=== PATIENT | male | born 1995 | race Caucasian/White ===

== ENCOUNTER 2017-02-23 08:12 | Emergency (ER) | payer BC ==
[2017-02-23 08:34] VITALS: BP 121/77
--- NOTE | 2017-02-23 08:49 | UC ---
Cardiac HPI - HPI Summary HPI Summary: 21 year old male with chest pain. Left chest pain for 2-3 days; pt did have cough 3 days before CP started. Pt had CP one month ago with URI; resolved. Pain is becoming more constant. Increased pain with activity. SOB off/on. Hx of pericarditis at age 17yrs and he is concerned about this recurring. This feels similar Pain 3/10 at this time and 8/10 last night. Went to [facility] in [place] 4 years ago and not since. [ End ] - History of Current Complaint Chief Complaint: UCChestPain Stated Complaint: CHEST PAIN Time Seen by Provider: 02/23/17 08:15 Hx Obtained From: Patient Onset/Duration: Gradual Onset Timing: Constant Initial Severity: Mild Current Severity: Moderate Chest Pain Location: Diffuse Related History: Similar Episode/Dx as - 4 years ago - Allergy/Home Medications Allergies/Adverse Reactions: Allergies Allergy/AdvReac Type Severity Reaction Status Date / Time No Known Allergies Allergy Verified 02/23/17 08:34 Home Medications: Home Medications Ranitidine HCl [Zantac] 150 mg PO ONCE PRN 02/23/17 [History Confirmed 02/23/17] PMH/Surg Hx/FS Hx/Imm Hx Previously Healthy: Yes Other Cardiovascular History: pericarditis age 17 Other History Of: Negative For: HIV, Hepatitis B, Hepatitis C, Anticoagulant Therapy - Surgical History Surgical History: Yes Surgery Procedure, Year, and Place: plastic facial - Family History Known Family History: Positive: Hypertension Negative: Cardiac Disease - Social History Occupation: Employed Full-time - [employer] Lives: With Family Alcohol Use: None Substance Use Type: None Smoking Status (MU): Current Some Day Smoker Review of Systems Constitutional: Negative Skin: Negative Eyes: Negative ENT: Negative Respiratory: Negative Cardiovascular: Chest Pain Gastrointestinal: Negative Genitourinary: Negative Motor: Negative Neurovascular: Negative Musculoskeletal: Negative Neurological: Negative Psychological: Negative All Other Systems Reviewed And Are Negative: Yes Physical Exam Triage Information Reviewed: Yes Appearance: Well-Appearing, Well-Nourished Vital Signs: Initial Vital Signs Temp 98.1 F 02/23/17 08:16 Pulse 84 02/23/17 08:16 Resp 24 02/23/17 08:16 BP 121/77 02/23/17 08:16 Pulse Ox 99 02/23/17 08:16 Vital Signs Reviewed: Yes Eye Exam: Normal ENT Exam: Normal Dental Exam: Normal Neck exam: Normal Neck: Positive: 1 Respiratory Exam: Normal Cardiovascular Exam: Normal Abdominal Exam: Normal Musculoskeletal Exam: Normal Neurological Exam: Normal Psychological Exam: Normal Skin Exam: Normal - Assessment/Plan Course Of Treatment: Spoke with SHASHI Posadas at [facility] at 0900 they will accpet patient - Differential Diagnoses - Chest Pain Differential Diagnosis/HQI/PQRI: Lower Respiratory Infection, Other: - pericarditis - Clinical Impression Provider Diagnoses: Chest pain Discharge - Discharge Plan Condition: Guarded Disposition: AGAINST MEDICAL ADVICE Patient Education Materials: Chest Pain (ED) Referrals: Non Staff,Doctor [Primary Care Provider] - 4 Days Additional Instructions: Please go to the Emergency Room for complete work up. You are expected at [place] [facility]. You have declined ambulance. Feel better soon.
== END 2017-02-23 09:00 | disposition left against medical advice (07) ==
LOC: UCCORT 08:12
DX: R07.9 Chest pain, unspecified (principal); Z53.21 Procedure and treatment not carried out due to patient leaving prior to being seen by health care provider
CPT/HCPCS: 93005; 99212; G0463

== ENCOUNTER 2019-08-11 11:57 | Emergency (ER) | payer BC ==
--- NOTE | 2019-08-11 12:11 | UC ---
Eye Complaint HPI - HPI Summary HPI Summary: "My son poked my in the eye." Four month old son poked him in the left eye two days ago. Has used acetaminophen, lubricating eye drops, and warm compresses without improvment. Left eye blurred vision, erythema, difficulty opening lids, pain, photphobia, and watering since injury. Denies contact lens use. - History of Current Complaint Chief Complaint: UCEye Stated Complaint: lt eye scratch Time Seen by Provider: 08/11/19 12:10 - Allergies/Home Medications Allergies/Adverse Reactions: Allergies Allergy/AdvReac Type Severity Reaction Status Date / Time No Known Allergies Allergy Verified 08/11/19 12:06 Home Medications: Home Medications Acetaminophen TAB* [Tylenol TAB*] 650 mg PO Q4H PRN 08/11/19 [History Confirmed 08/11/19] Erythromycin OPTH OINT* [Erythromycin 0.5% OPTH OINT*] 1 applic LEFT EYE TID 7 Days #1 ophth.oint 08/11/19 [Rx] Ibuprofen [Ibu] 600 mg PO TID 30 Days #90 tablet 08/11/19 [Rx] PMH/Surg Hx/FS Hx/Imm Hx Other History Of: Negative For: HIV, Hepatitis B, Hepatitis C, Anticoagulant Therapy - Surgical History Surgical History: Yes Surgery Procedure, Year, and Place: plastic facial - Family History Known Family History: Positive: Hypertension Negative: Cardiac Disease - Social History Alcohol Use: None Substance Use Type: None Smoking Status (MU): Current Some Day Smoker Eye Complaint Course/Dx - Course Course Of Treatment: L corneal abrasion noted after tetracaine and added. There was collection of stain gathered at central aspect. We are sending erythromycin and having him f/ u w/ opthalm. Discharge ED - Sign-Out/Discharge Documenting (check all that apply): Patient Departure All imaging exams completed and their final reports reviewed: No Studies - Discharge Plan Condition: Good Disposition: HOME Prescriptions: Erythromycin OPTH OINT* [Erythromycin 0.5% OPTH OINT*] 1 applic LEFT EYE TID 7 Days #1 ophth.oint Ibuprofen [Ibu] 600 mg PO TID 30 Days #90 tablet Patient Education Materials: Corneal Abrasion (ED) Referrals: Aric Suazo MD [Medical Doctor] - Additional Instructions: Please follow up with eye doctor in 2-4 days. - Billing Disposition and Condition Condition: GOOD Disposition: Home
[2019-08-11] MEDS ORDERED: Fluorescein Sodium TOPICAL* 1 MG TEST STRIP OPHTHALMIC ONE (12:13)
[2019-08-11] MEDS ORDERED: Tetracaine 0.5% OPTH.SOL 4 ML* 1 DROP BTL LEFT EYE ONE (12:13)
[2019-08-11 12:14] VITALS: BP 154/94
== END 2019-08-11 12:32 | disposition home or self-care (01) ==
LOC: UCCORT 11:57
DX: S05.02XA Injury of conjunctiva and corneal abrasion without foreign body, left eye, initial encounter (principal); W50.0XXA Accidental hit or strike by another person, initial encounter; Y92.9 Unspecified place or not applicable; Z72.0 Tobacco use
CPT/HCPCS: 99212; A9270-GY; G0463